=== PATIENT | female | born 1970 | race Caucasian/White ===

== ENCOUNTER 2024-02-08 02:48 | Emergency (ER) | payer SELFPAY ==
[2024-02-08 03:02] VITALS: TEMP 98.2; O2SAT 97
--- NOTE | 2024-02-08 03:12 | ERPHSYRPT ---
- History of Present Illness Time Seen by Provider: 02/08/24 02:59 Historian: patient Exam Limitations: no limitations Patient Subjective Stated Complaint: chest pain x5 days, pt states she recently had her father pass away and buried him yesterday. Triage Nursing Assessment: pt ambulatory to bed by self, pt alert and oriented x3, skin pwd, pt c/o intermittent chest pain x5 days, pt rating 2/10, voice hoarse. etoh on board, pt c/o nausea Physician History: Reportedly for the past 2 weeks pt has had nausea, a sore throat and dry heaves; for the past 5 days left anterior chest pain radiating to her left shoulder; for the past hour pt has had epigastric pain. Aspirin Treatment Today: unknown Allergies/Adverse Reactions: Sulfa (Sulfonamide Antibiotics) Allergy (Intermediate, Verified 02/08/24 02:53) Home Medications: Pantoprazole 20 mg [Protonix 20MG Tablet] 20 mg PO DAILY 02/08/24 [History] Travel Risk - International Travel Have you traveled outside of the country in past 3 weeks: No - Emerging Infectious Disease Are you exhibiting symptoms associated with any current EIDs: No - Review of Systems Ears, Nose, & Throat: Throat Pain Cardiac: Chest Pain Abdominal/Gastrointestinal: Abdominal Pain, Nausea - Past Medical History Pertinent Past Medical History: Yes Neurological History: No Pertinent History ENT History: No Pertinent History Cardiac History: No Pertinent History Respiratory History: No Pertinent History Endocrine Medical History: No Pertinent History Musculoskeletal History: No Pertinent History GI Medical History: GERD History: No Pertinent History Psycho-Social History: No Pertinent History Female Reproductive Disorders: No Pertinent History - Past Surgical History Past Surgical History: No Neuro Surgical History: No Pertinent History Cardiac: No Pertinent History Respiratory: No Pertinent History Gastrointestinal: No Pertinent History Genitourinary: No Pertinent History Musculoskeletal: No Pertinent History Female Surgical History: No Pertinent History - Social History Smoking Status: Never smoker Exposure to second hand smoke: Yes Drug Use: none - Social Determinants of Health Will the patient participate in the screening: Declined to provide - Nursing Vital Signs Nursing Vital Signs: Initial Vital Signs Temperature 98.2 F 02/08/24 02:55 Pulse Rate 101 H 02/08/24 02:55 Respiratory Rate 18 02/08/24 02:55 Blood Pressure 143/106 02/08/24 02:55 O2 Sat by Pulse Oximetry 97 02/08/24 02:55 Pain Scale Pain Intensity 1 - Physical Exam General Appearance: alert Eye Exam: eyes nml inspection Ears, Nose, Throat Exam: TMs normal, pharynx normal Neck Exam: normal inspection Respiratory Exam: lungs clear Cardiovascular Exam: normal heart sounds Gastrointestinal/Abdomen Exam: normal bowel sounds Extremity Exam: No pedal edema Neurologic Exam: alert, cooperative Skin Exam: warm, dry SpO2 Interpretation: normal SpO2: 97 O2 Delivery: Room Air - Course Nursing assessment & vital signs reviewed: Yes EKG Interpreted by Me: RATE (103), Sinus Tach, NORMAL AXIS, Other (QTc = 462) - Radiology Exams Chest X-ray Interpretation: Interpreted by me, No Pneumonia - CT Exams Abdomen/Pelvis CT Interpretation: Tele-radiologist Report (Mild hepatomegaly displaying diffuse steatosis and a suggested area of focal fatty infiltration on segment IV for follow-up. See rest of report.) Ordered Tests: Active Orders 24 hr Category Date Time Status EKG-ER Only STAT Care 02/08/24 03:13 Active IV Insertion STAT Care 02/08/24 03:13 Active ABDOMEN AND PELVIS W/0 CONTRAS [CT] Stat Exams 02/08/24 03:14 Completed CHEST 2 VIEWS (PA AND LAT) Stat Exams 02/08/24 03:14 Taken AMYLASE Stat Lab 02/08/24 03:26 Completed CBC W DIFF Stat Lab 02/08/24 03:26 Completed CMP Stat Lab 02/08/24 03:26 Completed D-DIMER QUANTITATIVE Stat Lab 02/08/24 03:26 Completed ETHYL ALCOHOL Stat Lab 02/08/24 03:26 Completed HCG QUALITATIVE, SERUM Stat Lab 02/08/24 03:26 Completed LIPASE Stat Lab 02/08/24 03:26 Completed MAGNESIUM Stat Lab 02/08/24 03:26 Completed TROPONIN Q4H Lab 02/08/24 03:26 Completed TROPONIN Q4H Lab 02/08/24 07:15 Ordered TROPONIN Q4H Lab 02/08/24 11:15 Ordered UA W/RFX UR CULTURE Stat Lab 02/08/24 03:37 Completed Urine Triage Profile Stat Lab 02/08/24 03:37 Results Medication Summary Discontinued Medications Generic Name Dose Route Start Last Admin Trade Name Freq PRN Reason Stop Dose Admin Al Hydrox/Mg Hydrox/Simethicone Confirm 02/08/24 05:06 Mag Hydrox/Al Hydrox/Simeth 30 Ml Udcup Administered 02/08/24 05:07 Dose 30 ml .ROUTE .STK-MED ONE Sodium Chloride 1,000 mls @ 999 mls/hr 02/08/24 03:13 02/08/24 03:33 Sodium Chloride 0.9% 1000 Ml IV 02/08/24 04:13 999 mls/hr .Q1H1M STA Administration Sodium Chloride Confirm 02/08/24 03:26 Sodium Chloride 0.9% 1000 Ml Administered 02/08/24 03:27 Dose 1,000 mls @ ud .ROUTE .STK-MED ONE Lidocaine HCl Confirm 02/08/24 05:06 Lidocaine Hcl 2% Viscous 15 Ml Udcup Administered 02/08/24 05:07 Dose 15 ml .ROUTE .STK-MED ONE Magnesium Hydroxide 45 ml 02/08/24 05:04 02/08/24 05:12 Mag Hydrx/Alum Hyd/Simeth/Lido 45 Ml Bottle PO 02/08/24 05:05 45 ml STAT ONE Administration Ondansetron HCl 4 mg 02/08/24 03:18 02/08/24 03:33 Ondansetron Hcl 4 Mg/2 Ml Vial IV 02/08/24 03:19 4 mg STAT ONE Administration Ondansetron HCl Confirm 02/08/24 03:26 Ondansetron Hcl 4 Mg/2 Ml Vial Administered 02/08/24 03:27 Dose 4 mg .ROUTE .STK-MED ONE Pantoprazole Sodium 40 mg 02/08/24 03:13 02/08/24 03:33 Pantoprazole 40 Mg Vial IV 02/08/24 03:14 40 mg STAT ONE Administration Pantoprazole Sodium Confirm 02/08/24 03:26 Pantoprazole 40 Mg Vial Administered 02/08/24 03:27 Dose 40 mg IV .STK-MED ONE Lab/Rad Data: Laboratory Result Diagrams 02/08/24 03:26 02/08/24 03:26 Laboratory Results 02/08/24 02/08/24 02/08/24 Range/Units 03:37 03:37 03:26 WBC (3.98-10.04) x10^3/uL RBC (3.93-5.22) x10^6/uL Hgb (11.2-15.7) g/dL Hct (34.1-44.9) % MCV (79.4-94.8) fL MCH (25.6-32.2) pg MCHC (32.2-35.5) g/dL RDW (11.7-14.4) % Plt Count (182-369) x10^3/uL MPV (9.4-12.3) fL Gran % (34.0-71.1) % Immature Gran % (Auto) (0.001-0.429) % Nucleat RBC Rel Count (0.00-0.2) % Eos # (Auto) (0.04-0.36) x10^3/uL Immature Gran # (Auto) (0.001-0.031) x10^3u/L Absolute Lymphs (auto) (1.18-3.74) x10^3/uL Absolute Monos (auto) (0.24-0.86) x10^3/uL Absolute Nucleated RBC (0.00-0.012) x10^3u/L Lymphocytes % (19.3-51.7) % Monocytes % (4.7-12.5) % Eosinophils % (0.7-5.8) % Basophils % (0.1-1.2) % Absolute Granulocytes (1.56-6.13) x10^3/uL Basophils # (0.01-0.08) x10^3/uL D-Dimer (0.0-0.50) mg/L Sodium (135-145) mmol/L Potassium (3.5-5.1) mmol/L Chloride (98-107) mmol/L Carbon Dioxide (22-30) mmol/L Anion Gap (5-15) MEQ/L BUN (7-17) mg/dL Creatinine (0.52-1.04) mg/dL Estimated GFR ML/MIN Glucose (74-106) mg/dL Calcium (8.4-10.2) mg/dL Magnesium (1.6-2.3) mg/dL Total Bilirubin (0.2-1.3) mg/dL AST (14-36) U/L ALT (0-35) U/L Alkaline Phosphatase (38-126) U/L Troponin I (0.000-0.033) ng/mL Serum Total Protein (6.3-8.2) g/dL Albumin (3.5-5.0) g/dL Amylase (30-110) U/L Lipase (23-300) U/L Serum HCG, Qual (NEGATIVE) Urine Color Yellow (Yellow) Urine Appearance Clear (Clear) Urine pH 6.0 (4.6-8.0) Ur Specific Harvey <=1.005 (1.005-1.030) Urine Protein Negative (Negative) Urine Glucose (UA) Negative (Negative) mg/dL Urine Ketones Negative (Negative) Urine Blood Negative (Negative) Urine Nitrite Negative (Negative) Urine Bilirubin Negative (Negative) Urine Urobilinogen 0.2 (0.2) mg/dL Ur Leukocyte Esterase Trace A (Negative) U Hyaline Cast (Auto) NONE SEEN (0-2) /LPF Urine Microscopic RBC 0-2 (0-5) /HPF Urine Microscopic WBC 0-2 (0-5) /HPF Ur Epithelial Cells None Seen (None Seen) /HPF Urine Bacteria None Seen (None Seen) /HPF Urine Culture Reflexed NO (NO) Urine Opiates Level NEGATIVE (NEGATIVE) Ur Methadone NEGATIVE (NEGATIVE) Urine Barbiturates NEGATIVE (NEGATIVE) Ur Phencyclidine (PCP) NEGATIVE (NEGATIVE) Urine Amphetamine NEGATIVE (NEGATIVE) U Benzodiazepine Level Pending Urine Cocaine NEGATIVE (NEGATIVE) Urine Marijuana (THC) NEGATIVE (NEGATIVE) Ethyl Alcohol 346 H (0-10) mg/dL 02/08/24 02/08/24 02/08/24 Range/Units 03:26 03:26 03:26 WBC (3.98-10.04) x10^3/uL RBC (3.93-5.22) x10^6/uL Hgb (11.2-15.7) g/dL Hct (34.1-44.9) % MCV (79.4-94.8) fL MCH (25.6-32.2) pg MCHC (32.2-35.5) g/dL RDW (11.7-14.4) % Plt Count (182-369) x10^3/uL MPV (9.4-12.3) fL Gran % (34.0-71.1) % Immature Gran % (Auto) (0.001-0.429) % Nucleat RBC Rel Count (0.00-0.2) % Eos # (Auto) (0.04-0.36) x10^3/uL Immature Gran # (Auto) (0.001-0.031) x10^3u/L Absolute Lymphs (auto) (1.18-3.74) x10^3/uL Absolute Monos (auto) (0.24-0.86) x10^3/uL Absolute Nucleated RBC (0.00-0.012) x10^3u/L Lymphocytes % (19.3-51.7) % Monocytes % (4.7-12.5) % Eosinophils % (0.7-5.8) % Basophils % (0.1-1.2) % Absolute Granulocytes (1.56-6.13) x10^3/uL Basophils # (0.01-0.08) x10^3/uL D-Dimer 0.49 (0.0-0.50) mg/L Sodium (135-145) mmol/L Potassium (3.5-5.1) mmol/L Chloride (98-107) mmol/L Carbon Dioxide (22-30) mmol/L Anion Gap (5-15) MEQ/L BUN (7-17) mg/dL Creatinine (0.52-1.04) mg/dL Estimated GFR ML/MIN Glucose (74-106) mg/dL Calcium (8.4-10.2) mg/dL Magnesium 2.4 H (1.6-2.3) mg/dL Total Bilirubin (0.2-1.3) mg/dL AST (14-36) U/L ALT (0-35) U/L Alkaline Phosphatase (38-126) U/L Troponin I < 0.012 (0.000-0.033) ng/mL Serum Total Protein (6.3-8.2) g/dL Albumin (3.5-5.0) g/dL Amylase (30-110) U/L Lipase (23-300) U/L Serum HCG, Qual NEGATIVE (NEGATIVE) Urine Color (Yellow) Urine Appearance (Clear) Urine pH (4.6-8.0) Ur Specific Harvey (1.005-1.030) Urine Protein (Negative) Urine Glucose (UA) (Negative) mg/dL Urine Ketones (Negative) Urine Blood (Negative) Urine Nitrite (Negative) Urine Bilirubin (Negative) Urine Urobilinogen (0.2) mg/dL Ur Leukocyte Esterase (Negative) U Hyaline Cast (Auto) (0-2) /LPF Urine Microscopic RBC (0-5) /HPF Urine Microscopic WBC (0-5) /HPF Ur Epithelial Cells (None Seen) /HPF Urine Bacteria (None Seen) /HPF Urine Culture Reflexed (NO) Urine Opiates Level (NEGATIVE) Ur Methadone (NEGATIVE) Urine Barbiturates (NEGATIVE) Ur Phencyclidine (PCP) (NEGATIVE) Urine Amphetamine (NEGATIVE) U Benzodiazepine Level Urine Cocaine (NEGATIVE) Urine Marijuana (THC) (NEGATIVE) Ethyl Alcohol (0-10) mg/dL 02/08/24 02/08/24 Range/Units 03:26 03:26 WBC 8.7 (3.98-10.04) x10^3/uL RBC 4.01 (3.93-5.22) x10^6/uL Hgb 12.6 (11.2-15.7) g/dL Hct 37.0 (34.1-44.9) % MCV 92.3 (79.4-94.8) fL MCH 31.4 (25.6-32.2) pg MCHC 34.1 (32.2-35.5) g/dL RDW 12.6 (11.7-14.4) % Plt Count 241 (182-369) x10^3/uL MPV 9.4 (9.4-12.3) fL Gran % 46.6 (34.0-71.1) % Immature Gran % (Auto) 0.1 (0.001-0.429) % Nucleat RBC Rel Count 0.0 (0.00-0.2) % Eos # (Auto) 0.09 (0.04-0.36) x10^3/uL Immature Gran # (Auto) 0.01 (0.001-0.031) x10^3u/L Absolute Lymphs (auto) 3.97 H (1.18-3.74) x10^3/uL Absolute Monos (auto) 0.57 (0.24-0.86) x10^3/uL Absolute Nucleated RBC 0.00 (0.00-0.012) x10^3u/L Lymphocytes % 45.6 (19.3-51.7) % Monocytes % 6.5 (4.7-12.5) % Eosinophils % 1.0 (0.7-5.8) % Basophils % 0.2 (0.1-1.2) % Absolute Granulocytes 4.05 (1.56-6.13) x10^3/uL Basophils # 0.02 (0.01-0.08) x10^3/uL D-Dimer (0.0-0.50) mg/L Sodium 139 (135-145) mmol/L Potassium 3.4 L (3.5-5.1) mmol/L Chloride 100 (98-107) mmol/L Carbon Dioxide 25 (22-30) mmol/L Anion Gap 17.7 H (5-15) MEQ/L BUN 5 L (7-17) mg/dL Creatinine 0.67 (0.52-1.04) mg/dL Estimated GFR 102.5 ML/MIN Glucose 139 H (74-106) mg/dL Calcium 9.1 (8.4-10.2) mg/dL Magnesium (1.6-2.3) mg/dL Total Bilirubin 0.60 (0.2-1.3) mg/dL AST 76 H (14-36) U/L ALT 51 H (0-35) U/L Alkaline Phosphatase 97 (38-126) U/L Troponin I (0.000-0.033) ng/mL Serum Total Protein 7.5 (6.3-8.2) g/dL Albumin 4.7 (3.5-5.0) g/dL Amylase 56 (30-110) U/L Lipase 100 (23-300) U/L Serum HCG, Qual (NEGATIVE) Urine Color (Yellow) Urine Appearance (Clear) Urine pH (4.6-8.0) Ur Specific Harvey (1.005-1.030) Urine Protein (Negative) Urine Glucose (UA) (Negative) mg/dL Urine Ketones (Negative) Urine Blood (Negative) Urine Nitrite (Negative) Urine Bilirubin (Negative) Urine Urobilinogen (0.2) mg/dL Ur Leukocyte Esterase (Negative) U Hyaline Cast (Auto) (0-2) /LPF Urine Microscopic RBC (0-5) /HPF Urine Microscopic WBC (0-5) /HPF Ur Epithelial Cells (None Seen) /HPF Urine Bacteria (None Seen) /HPF Urine Culture Reflexed (NO) Urine Opiates Level (NEGATIVE) Ur Methadone (NEGATIVE) Urine Barbiturates (NEGATIVE) Ur Phencyclidine (PCP) (NEGATIVE) Urine Amphetamine (NEGATIVE) U Benzodiazepine Level Urine Cocaine (NEGATIVE) Urine Marijuana (THC) (NEGATIVE) Ethyl Alcohol (0-10) mg/dL - Progress Progress: improved Progress Note: 02/08/24 05:26 Pt does not want to stay in the hospital. Counseled pt/family regarding: lab results, diagnosis, need for follow-up, rad results Medical Desision Making - Diagnostic Testing Diagnostic test were ordered, analyzed, and reviewed by me: Yes Radiological Interpretation: Teleradiologist Report - Departure Departure Disposition: Home Clinical Impression: Chest pain, Alcohol intoxication, Abdominal pain Condition: Stable Critical Care Time: No Referrals: DOCTOR,NO FAMILY [Primary Care Provider] - Follow up/PCP as directed Instructions: Chest Pain (DC), Abdominal Pain, Adult ED Additional Instructions: Follow up with private doctor tomorrow.
[2024-02-08] MEDS ORDERED: PROTONIX 40 MG IV IV ONE (03:26)
[2024-02-08] MEDS ORDERED: Sodium Chloride 0.9% 1000 ML 1,000 ML ONE (03:26)
[2024-02-08] MEDS ORDERED: Zofran 4 MG/2 ML VIAL ONE (03:26)
[2024-02-08 03:30] LABS: Absolute Neutrophil Ct (ANC) 4.05 x10^3/uL (1.56-6.13); BASOPHIL % 0.2 % (0.1-1.2); Basophil (Absolute #) 0.02 x10^3/uL (0.01-0.08); Eosinophil (Absolute #) 0.09 x10^3/uL (0.04-0.36); Hemoglobin 12.6 g/dL (11.2-15.7); IMMATURE GRAN # 0.01 x10^3u/L (0.001-0.031); IMMATURE GRAN % 0.1 % (0.001-0.429); Lymphocyte (Absolute #) 3.97 x10^3/uL (1.18-3.74); Lymphocytes % 45.6 % (19.3-51.7); Mean Cell Volume 92.3 fL (79.4-94.8); Mean Corpuscular Hemoglobin 31.4 pg (25.6-32.2); Mean Corpuscular Hgb Concent. 34.1 g/dL (32.2-35.5); Mean Platelet Volume 9.4 fL (9.4-12.3); Monocyte (Absolute #) 0.57 x10^3/uL (0.24-0.86); Monocytes % 6.5 % (4.7-12.5); Neutrophil % 46.6 % (34.0-71.1); Platelet Count 241 x10^3/uL (182-369); Red Blood Count 4.01 x10^6/uL (3.93-5.22); Red Cell Distribution Width 12.6 % (11.7-14.4); White Blood Count 8.7 x10^3/uL (3.98-10.04)
[2024-02-08] MEDS: Zofran 4 MG/2 ML VIAL IV ONE (03:33)
[2024-02-08] MEDS: Sodium Chloride 0.9% 1000 ML 1,000 ML IV STA (03:33)
[2024-02-08] MEDS: PROTONIX 40 MG IV IV ONE (03:33)
[2024-02-08 03:42] LABS: HCG SERUM TEST NEGATIVE (NEGATIVE)
[2024-02-08 03:43] LABS: ALBUMIN 4.7 g/dL (3.5-5.0); ANION GAP 17.7 MEQ/L (5-15); BILIRUBIN,TOTAL 0.6 mg/dL (0.2-1.3); Calcium 9.1 mg/dL (8.4-10.2); Creatinine 1 0.67 mg/dL (0.52-1.04); EST GLOMERULAR FILTRATION RATE 102.5 ML/MIN; Potassium 3.4 mmol/L (3.5-5.1); Total Protein 7.5 g/dL (6.3-8.2)
[2024-02-08 03:54] LABS: Appearance Clear (Clear); Bacteria None Seen /HPF (None Seen); Bilirubin Negative (Negative); Blood Negative (Negative); Epithelial Cells None Seen /HPF (None Seen); Glucose, Urine Negative (Negative); Hyaline Casts NONE SEEN /LPF (0-2); Ketones Negative (Negative); Leukocyte Esterase Trace (Negative); Nitrite Negative (Negative); Protein,Urine Dip Negative (Negative); RBC 0-2 /HPF (0-5); Specific Gravity <=1.005 (1.005-1.030); Urobilinogen 0.2 mg/dL (0.2); WBC 0-2 /HPF (0-5)
[2024-02-08 03:55] LABS: MAGNESIUM 2.4 mg/dL (1.6-2.3); TROPONIN < 0.012 ng/mL (0.000-0.033)
[2024-02-08 03:56] LABS: ADD URINE CULTURE? NO (NO)
[2024-02-08 04:03] LABS: Amphetamine,Urine NEGATIVE (NEGATIVE); Barbiturate,Urine NEGATIVE (NEGATIVE); Cocaine,Urine NEGATIVE (NEGATIVE); Methadone,Urine NEGATIVE (NEGATIVE); Opiate,Urine NEGATIVE (NEGATIVE); PCP,Urine NEGATIVE (NEGATIVE); THC,Urine NEGATIVE (NEGATIVE)
--- NOTE | 2024-02-08 04:49 | XRAY ---
CLINICAL HISTORY: pain COMPARISON: No prior studies are available for comparison. TECHNIQUE: Non-contrast CT of the abdomen and pelvis was performed, with the following protocol: axial images, and reconstructed coronal and sagittal images. No intravenous contrast was administered. One of the following dose reduction techniques was utilized for this exam: Automated exposure control, adjustment of the mA and/or kV according to patient size, and use of iterative reconstruction. FINDINGS: Abdomen: Liver: Enlarged in size (18 cm in right lobe span ), normal shape, and diffuse fatty density. a small geographic hypodense area is seen at segment IV B in the sub-capsular location, measuring about 2.6x1.2 cm and reaching an average (-8.2 HU)density denoting an area of focal fatty infiltration for follow-up. Gallbladder and Biliary System: The gallbladder is normal in size and shape with isodense mud inside. No wall thickening, pericholecystic fluid, or gallstones were identified. Pancreas: Pancreatic head, body, and tail are visualized and appear normal in size and density. No pancreatic masses or calcifications were noted. Spleen: Normal in size, shape, and density, with scattered small calcific foci related to old granulomas. No splenic lesions or masses were identified. Kidneys and Adrenal Glands: Both kidneys are normal in size, shape, and position. Cortical thickness is within normal limits. No renal calculi or hydronephrosis. Adrenal glands are unremarkable. Appendix: The appendix is normal in size without gayatri appendiceal fat stranding and without an appendicolith. No evidence of appendiceal abscess or perforation. Pelvis: Urinary Bladder: Normal in contour and wall thickness. No intraluminal lesions. Uterus: Normal in size and contour. No masses or abnormal thickening apart from small posterior wall sub-serous lesion(12x9 mm ), could be myoma for US correlation . Ovaries: right one shows few calcific foci, no other lesions, non visualised left ovary. Vagina: Normal in contour and wall thickness. Cervix: No evidence of mass or abnormal thickening. Peritoneal and Retroperitoneal Structures: No free fluid or abnormal fluid collections were identified within the abdomen or pelvis. No lymphadenopathy was noted. Bowel: Multiple scattered small colonic diverticulae are noted along the sigmoid and descending colons with no related current complications. The visualized bowel loops are normal in caliber and appearance. No evidence of bowel obstruction or wall thickening. Bones and Soft Tissues: Pelvic bones and soft tissues are unremarkable. No fractures or abnormal masses were identified. mild spondylosis of the examined lumbar spine. A small umbilical hernia containing mental fat, no related complications. lower chest cuts shows a right middle lung lobe small rounded dense calcified nodule(5.3mm) related to old granuloma. IMPRESSION: 1. Mild hepatomegaly displaying diffuse steatosis and a suggested area of focal fatty infiltration on segment IV for follow-up. 2. Splenic calcifications related to old granulomas. 3. Non-complicated colonic diverticulosis for follow-up. 4. Small umbilical hernia. 5. Right middle lung lobe showing a single 5.3 calcified nodule, related to old granuloma. Electronically Signed by: Faye Mcleod MD. (02/08/2024 04:44:59 EDT)
[2024-02-08] MEDS ORDERED: MAALOX ES 30 ML UNIT DOSE ONE (05:06)
[2024-02-08] MEDS ORDERED: XYLOCAINE VISCOUS 2% 15 ML CUP ONE (05:06)
[2024-02-08] MEDS: GI COCKTAIL 45 ML (Maalox/Lidocaine) PO ONE (05:12)
[2024-02-08] MEDS ORDERED: Ativan 1 MG ONE (05:40)
[2024-02-08] MEDS: Ativan 0.5 MG PO ONE (05:44)
[2024-02-08 05:46] VITALS: BP 133/72; PULSE 99; RESP 17
--- NOTE | 2024-02-08 08:37 | XRAY ---
Indication: Pain. Comparison: None PA/lateral chest does not completely include posterior gutters. Visualized lungs inflated and clear with incidental tiny calcified granulomas. Heart and mediastinal structures within normal limits with incidental small mediastinal/hilar calcified nodes. Bony thorax intact with osteopenia and minimal degenerative changes. Impression: Nonacute limited chest with chronic features.
[2024-02-09 20:13] LABS: Benzodiazepines Negative ng/mL (Cutoff=300)
== END 2024-02-08 05:46 | disposition home or self-care (01) ==
LOC: ED 02:48
DX: R07.9 Chest pain, unspecified (principal); R10.13 Epigastric pain; F10.129 Alcohol abuse with intoxication, unspecified; Y90.8 Blood alcohol level of 240 mg/100 ml or more; R11.0 Nausea; J02.9 Acute pharyngitis, unspecified
CPT/HCPCS: 36000; 36415; 71046; 74176; 80053; 80307; 81001; 82077; 82150; 83690; 83735; 84484; 84703; 85025; 85379; 93005; 96374; 96375; 99284; J2405; A9270-GY